=== PATIENT | female | born 1980 | race Caucasian/White ===

== ENCOUNTER 2016-12-06 15:45 | Emergency (ER) | payer OTHER ==
[~2016-12-06] VITALS: Ht 177.8 cm; Wt 123.6 kg
[~2016-12-06 15:45] MED LIST: NOVOLIN N100 UNIT/1 SQ; NOVOLOG (UNITS1 UNIT IV
[2016-12-06 16:07] LABS: HEMATOCRIT 37.7 % (36.0-46.0); MCH 28.8 PG (29.0-34.0); MCHC 33.4 G/DL (30.0-36.0); MCV 86.1 FL (83-99); MEAN PLAT.VOLUME 10.2 uM^3 (9.5-12.4); PLATELET COUNT 264 K/uL (156-360); RBC DIS.WIDTH-CV 13.8 % (11.8-14.6); RBC DIS.WIDTH-SD 43.8 % (39-53); RED BLOOD COUNT 4.38 M/uL (3.80-5.20); WHITE BLOOD COUNT 11.6 K/uL (4.1-10.2)
[2016-12-06 16:20] LABS: CHLORIDE 104 mEq/L (99-109); POTASSIUM 3.7 mEq/L (3.7-5.4); SODIUM 141 mEq/L (136-147)
[2016-12-06 16:23] LABS: ANION GAP 12 MEQ/L (2-14); GLUCOSE 138 mg/dL (70-99)
[2016-12-06 16:25] LABS: GFR ESTIMATE (CALCULATED) > 59 mL/min/
[2016-12-06 16:26] LABS: UREA NITROGEN (BUN) 10 mg/dL (9-23)
[2016-12-06 16:48] LABS: TROP-I INTERPRETATION NEGATIVE; TROPONIN-I < 0.01 ng/mL (0.0-0.30)
[2016-12-06 18:50] VITALS: BP 113/63
== END 2016-12-06 19:26 | disposition home or self-care (01) ==
LOC: EME → EDBD 15:45 → EME 15:45
DX: R07.89 Other chest pain (principal); M25.512 Pain in left shoulder; I10 Essential (primary) hypertension; E11.9 Type 2 diabetes mellitus without complications; E78.5 Hyperlipidemia, unspecified; F17.200 Nicotine dependence, unspecified, uncomplicated; Z79.4 Long term (current) use of insulin; Z90.710 Acquired absence of both cervix and uterus
CPT/HCPCS: 71020; 80048; 84484; 85027; 93005; 99281; 99284

== ENCOUNTER 2017-02-01 17:37 | Emergency (ER) | payer OTHER ==
[~2017-02-01] VITALS: Ht 172.7 cm; Wt 120.4 kg
[2017-02-01] MEDS ORDERED: DICLOFENAC SODI75 MG PO (23:03)
[2017-02-02 00:08] VITALS: BP 156/83
== END 2017-02-02 00:12 | disposition home or self-care (01) ==
LOC: EME 17:37
DX: M54.5 Low back pain (principal); G89.29 Other chronic pain; M79.604 Pain in right leg; E11.9 Type 2 diabetes mellitus without complications; Z79.4 Long term (current) use of insulin; F17.200 Nicotine dependence, unspecified, uncomplicated
CPT/HCPCS: 93971; 99281; 99284